=== PATIENT | male | born 1990 | race African-American/Black ===

== ENCOUNTER 2022-09-22 16:18 | Emergency (ER) | payer SELFPAY ==
[2022-09-22] MEDS ORDERED: Boostrix 0.5 ML (Tdap) VIAL (>/=7 yrs of age) ONE (17:59)
== END 2022-09-22 18:16 | disposition home or self-care (01) ==
LOC: CSHERS 16:18
DX: S60.416A Abrasion of right little finger, initial encounter (principal); B35.4 Tinea corporis; X58.XXXA Exposure to other specified factors, initial encounter
CPT/HCPCS: 90471; 90715